=== PATIENT | female | born 1940 | race Caucasian/White ===

== ENCOUNTER → 2017-12-22 | Day surgery (SDC) | payer OTHER ==
--- NOTE | 2017-12-23 08:00 | OP ---
DATE OF OPERATION: 12/22/2017 PREOPERATIVE DIAGNOSIS: Right breast masses at 5 o'clock, 4 cm from the nipple, and 3 o'clock, retroareolar, plus right axillary node. POSTOPERATIVE DIAGNOSIS: Right breast masses at 5 o'clock, 4 cm from the nipple, and 3 o'clock, retroareolar, plus right axillary node. PROCEDURE: Right ultrasound-guided core biopsies of the right breast masses, attempted right axillary node biopsy. ANESTHESIA: Local. ATTENDING SURGEON: Rajani Daily MD ESTIMATED BLOOD LOSS: Minimal. COMPLICATIONS: None. DESCRIPTION OF PROCEDURE: Patient was made aware of the risks and benefits of the procedure and consented. She was placed in the supine position. The right breast 5 o'clock lesion, 4 cm from the nipple, was approached first. Under sterile conditions with 1% Lidocaine for local anesthesia, a small chance was made in the skin. Using a 13-guage suction biopsy device via lateral approach, under ultrasound guidance, multiple cores were obtained and submitted to Pathology. Likewise, under ultrasound guidance, a bowtie clip was placed into the biopsy region. Steri-Strips were then applied. The right 3 o'clock retroareolar nodule was then approached. Under sterile conditions with 1% Lidocaine for local anesthesia, a small chance was made in the skin. Using a 10-guage suction biopsy device via a superior lateral approach, three cores were obtained and submitted to Pathology removing the lesion. Likewise, under ultrasound guidance, a U-shaped clip was placed into the biopsy region, well tolerated by patient. Steri-Strips and sterile bandage were then applied. The right axilla was then approached. Under sterile conditions with 1% Lidocaine for local anesthesia, a small chance was made in the skin. Using a 13-guage suction biopsy device, multiple attempts were taken to biopsy the lymph node. Unfortunately, the lymph node was very high in the axilla, small, and very mobile. After multiple attempts, it became clear that we would not be able to biopsy this lymph node without jeopardizing some of the vasculature, and therefore the procedure was aborted. Steri-Strips and sterile dressings were applied. The patient tolerated the procedure well. Will contact her with results. RAJANI DAILY M.D. [id number]
--- NOTE | 2017-12-23 15:44 | PATH ---
Surgical Pathology Report Patient Name: OMARI HICKEY [facility]. Rec. #: [id number] /Age/Gender: 1940 (Age: 77) / F Account: [id number] [facility] Taken: 12/22/2017 Received: 12/22/2017 Reported: 12/23/2017 Physicians: Rajani Daily M.D. Specimen(s) Received A: RIGHT BREAST 5:00 4 CN FN CORE BIOPSY B: RIGHT BREAST 3:00 RETRO CORE BIOPSY Clinical History Palpable mass Ultrasound findings: Highly suspicious/malignant Final Diagnosis A. BREAST, RIGHT, 5:00, 4 CM FN, CORE BIOPSY: INVASIVE MICROPAPILLARY CARCINOMA (NUCLEAR GRADE 2), MEASURING 1.2 CM IN GREATEST DIMENSION IN THIS MATERIAL. FOCI OF LYMPHOVASCULAR INVASION ARE IDENTIFIED. Results of ER, CT, HER2 & Ki67 studies reported separately in an addendum. B. BREAST, RIGHT, 3:00, RETRO, CORE BIOPSY: BENIGN BREAST TISSUE SHOWING SCLEROSING ADENOSIS, FIBROADENOMATOID CHANGE, CYST FORMATION AND ASSOCIATED CALCIFICATIONS. Electronically Signed Cassandra Pierson M.D. Gross Description A. Received in formalin labeled "right breast biopsy 5:00, 4cmfn," is a 2.0 x 1.5 x 0.1 cm aggregate of multiple ross-yellow, irregular to cylindrical portions of fibroadipose tissue. The formalin is filtered and the specimen is entirely submitted in one cassette. B. Received in formalin labeled "right breast biopsy 3:00 retro," is a 1.5 x 1.3 x 0.3 cm aggregate of multiple ross-yellow, irregular to cylindrical portions of fibroadipose tissue admixed with blood clot. The formalin is filtered and the specimen is entirely submitted in one cassette. Time to formalin fixation: < 1 minute Total formalin fixation time: Approximately 10 hours. 12/22/201712/22/2017
== END | disposition home or self-care (01) ==
LOC: FRAD 10:43 → FRADUS-SUR 10:43
PROVIDERS: ATTEND Surgery Surgical Oncology
PROC: 0HBT3ZX Excision of Right Breast, Percutaneous Approach, Diagnostic (ICD-10-PCS; principal; 2017-12-22)
DX: C50.311 Malignant neoplasm of lower-inner quadrant of right female breast (principal); N63.14 Unspecified lump in the right breast, lower inner quadrant; N60.21 Fibroadenosis of right breast; N64.89 Other specified disorders of breast
CPT/HCPCS: 19083; 19084; 76641-TC-LT; 77066-TC; 87899; 88305-TC; 88342-TC; A4648; G0279-TC

== ENCOUNTER 2018-03-23 07:05 | Inpatient (IN) | payer OTHER ==
[2018-03-15 17:33] VITALS: BMI 20.9
--- NOTE | 2018-03-17 15:34 | HP ---
Admitting History and Physical - Primary Care Physician PCP: Rajani Daily - Admission Chief Complaint: Right breast cancer History of Present Illness: 77 year old postmenapausal female with family h/o breast cancer with right breast mass seen on CT scan of her chest.3.3x1.7x1.2cm. 11/2017. US showed two right breast masses 1.6 cm 5 to 6:00 and 4mm retroareolar mass and small suspicious axillary nodule. 12/22/2017 US core bx of right breast masses 5:00 4cmfn showed invasive micropappilary carcinoma and right retroarelar 3:00 showed sclerosing adenosis. Repeat CT scan of the chest showed slight decrease in size of right upper lobe mass since 11/2017 COPD and enlarged adrenal gland left and cholelithiasis. History Source: Patient Limitations to Obtaining History: No Limitations - Past Medical History LANDSCAPE TECHNICIAN: Yes: Seizure, Syncope (followed by Dr Tolliver), Other (memory loss) Pulmonary: Yes: COPD, Other (Lung nodule on CT scan with repeat CT scan showing slight decrease in right lung nodule 03/13/2018) Musculoskeletal: Yes: Chronic low back pain - Past Surgical History Past Surgical History: Yes: Tubal Ligation - Smoking History Smoking history: Current every day smoker Have you smoked in the past 12 months: Yes Aproximately how many cigarettes per day: 20 - Alcohol/Substance Use Hx Alcohol Use: No Home Medications - Allergies Allergies/Adverse Reactions: Allergies Allergy/AdvReac Type Severity Reaction Status Date / Time No Known Allergies Allergy Verified 03/15/18 17:49 - Home Medications Home Medications: Ambulatory Orders Bupropion HCl [Bupropion Xl] 150 mg PO DAILY 03/15/18 Divalproex Sodium [Depakote ER] 500 mg PO BID 03/15/18 Gabapentin 100 mg PO HS 03/15/18 Family Disease History - Family Disease History Family Disease History: CA: Father (bacl cancer), Mother (bilat breast ca 50/60) Physical Examination Constitutional: Yes: Well Nourished Breast(s): Yes: Other (breast symmetrical diffusely nodular 2.0 cm firm mass in the lower outer quad mass with skin retraction but no involvement) Problem List - Problems (1) Breast cancer, right breast Code(s): C50.911 - MALIGNANT NEOPLASM OF UNSP SITE OF RIGHT FEMALE BREAST Qualifiers: Breast location: lower outer quadrant of breast Patient sex: female Assessment/Plan Right total mastectomy sentenel node biopsy with blue dye only, no reconstruction, possible axillary node dissection
[2018-03-23] MEDS ORDERED: BUPIVACAINE HCL/PF (5 MG/ML) 30 ML VIAL IJ ONE (07:37)
[2018-03-23] MEDS ORDERED: MIDAZOLAM HCL 2 MG/2 ML SINGLE DOSE VIAL ONE (07:37)
[2018-03-23] MEDS ORDERED: DEXAMETHASONE SOD PHOSPHATE/PF 10 MG/ML SDV ONE (07:37)
[2018-03-23] MEDS ORDERED: SUCCINYLCHOLINE CHLORIDE 200 MG/10 ML VIAL ONE (08:33)
[2018-03-23] MEDS ORDERED: ROCURONIUM BROMIDE 50 MG/5 ML VIAL ONE (08:33)
[2018-03-23] MEDS ORDERED: PROPOFOL 20 ML ONE ×2 (08:33)
[2018-03-23] MEDS ORDERED: LIDOCAINE HCL 2% JELLY (5 ML/TUBE) ONE (08:34)
[2018-03-23] MEDS ORDERED: LIDOCAINE HCL/PF 2% SDV 5ML VIAL ONE (08:34)
[2018-03-23] MEDS ORDERED: DEXAMETHASONE SOD PHOSPHATE 4 MG/1 ML VIAL ONE (08:34)
[2018-03-23] MEDS ORDERED: KETOROLAC TROMETHAMINE 30 MG/1 ML VIAL ONE (08:34)
[2018-03-23] MEDS ORDERED: ceFAZolin SODIUM 1 GM VIAL ONE (08:34)
[2018-03-23] MEDS ORDERED: ONDANSETRON 4 MG/2 ML VIAL ONE (08:34)
[2018-03-23] MEDS ORDERED: ISOSULFAN BLUE 10 MG/ML VIAL SQ ONE (09:08)
[2018-03-23] MEDS ORDERED: GUM MASTIC/STORAX/MSAL/ALCOHOL 1 DRP DROPSBTL MC ONE (10:54)
[2018-03-23] MEDS ORDERED: ONDANSETRON 4 MG/2 ML VIAL IVPUSH PRN ×2 (11:08→11:14)
[2018-03-23] MEDS ORDERED: ZOLPIDEM TARTRATE 5 MG TABLET PO PRN (11:08)
[2018-03-23] MEDS ORDERED: ACETAMINOPHEN 325 MG TABLET (FP) PO PRN (11:08)
[2018-03-23] MEDS ORDERED: PROMETHAZINE HCL 25 MG/1 ML VIAL IVPUSH PRN (11:14)
[2018-03-23] MEDS ORDERED: oxyCODONE HCL 5 MG TABLET PO PRN ×2 (11:14)
[2018-03-23] MEDS ORDERED: DEXTROSE 5%-0.45% SALINE 1,000 ML IV SCH (11:15)
[2018-03-23] MEDS ORDERED: LACTATED RINGERS SOLUTION 1,000 ML IV SCH (11:15)
[2018-03-23] MEDS ORDERED: ONDANSETRON 4 MG/2 ML VIAL IVPUSH ONE (11:33)
--- NOTE | 2018-03-23 12:24 | OP ---
DATE OF OPERATION: 03/23/2018 PREOPERATIVE DIAGNOSIS: Right breast cancer. POSTOPERATIVE DIAGNOSIS: Right breast cancer. PROCEDURE: Right modified radical mastectomy with right axillary sentinel node biopsy. ANESTHESIA: General intubated. ATTENDING SURGEON: Rajani Guo MD NUCLEAR INSTRUCTOR: KENDALL Díaz ESTIMATED BLOOD LOSS: Minimal. COMPLICATIONS: None. DESCRIPTION OF PROCEDURE: The patient was made aware of the risks and benefits of the procedure and consented. She was placed in the supine position on the operating room table, and after was induced, the patient was intubated. Then 2.5 mL of 1% Isosulfan Blue was locally infiltrated into the peritumoral tissues. The operative site is prepped and draped in the usual sterile fashion. Waiting approximately 10 minutes with gently manual compression, a curvilinear incision was made in the right axilla. Using blunt and sharp dissection, tissues were dissected down where blue cluster of lymph were surgically excised and submitted for frozen section. Frozen section was reported as positive for metastatic cancer. Elliptical incision was then made around the nipple and skin overlying the tumor. Using electrocautery, skin flaps were made superior to the clavicle, medial to the sternum, laterally to the latissimus dorsi, and inferior to inframammary fold. Using electrocautery, the breast tissue was taken out the pectoralis muscle extending to latissimus dorsi. The clavipectoral muscle was incised revealing the axillary vein dissecting bluntly along the lateral chest wall, the long thoracic nerve was identified and retracted medially. Laterally, the thoracodorsal nerve was identified and retracted laterally. Tissues between the two were bluntly and sharply dissected away using medium-sized hemoclips for hemostasis. Specimen was then submitted as right breast with right axillary contents with a short suture superior and long suture lateral. The wound was copiously irrigated with normal saline. Hemostasis maintained by electrocautery. Through 2 inferior stab wounds, No. 10 Maul[place] drains were placed and sutured to the skin with 2-0 silk. The skin was then closed with interrupted 2-0 Vicryl followed by running subdermal 3-0 Vicryl followed by a running subcuticular 4-0 Monocryl. Dermabond, pressure dressing, and a bra were then applied, and the patient having tolerated the procedure well, was transferred to the recovery room in excellent condition. PONVasquez [id number]
[2018-03-23] MEDS: CEFAZOLIN 1 GM/D5W 1 GM/50 ML BAG IVPB SCH ×2 (15:49→20:44)
[2018-03-23] MEDS ORDERED: PT OWN MED DRAWER 7, Y5N ONE (21:00)
[2018-03-23] MEDS: DIVALPROEX NA *ER* EXTEND REL 500 MG TABLET.SA (FP) PO SCH (21:35)
[2018-03-24] MEDS: CEFAZOLIN 1 GM/D5W 1 GM/50 ML BAG IVPB SCH ×4 (03:41→21:22)
--- NOTE | 2018-03-24 09:15 | PN ---
Progress Note, Physician Chief Complaint: S/P right MRM with sentinel node bx POD #1 History of Present Illness: Patient was seen today at the bedside and reports right sided lower chest pain as well as abdominal discomfort. She is tolerating po intake well. - Current Medication List Current Medications: Active Medications Acetaminophen (Tylenol -) 650 mg PO Q4H PRN PRN Reason: FEVER Acetaminophen (Tylenol -) 650 mg PO Q6H [facility] Stop: 03/26/18 11:14 Bupropion HCl (Wellbutrin Xl -) 150 mg PO DAILY [facility] Divalproex Sodium (Depakote *Er* -) 500 mg PO BID [facility] Last Admin: 03/23/18 21:35 Dose: 500 mg Fentanyl (Sublimaze Injection -) 25 mcg IVPUSH [id number] PRN PRN Reason: PAIN-PACU ORDER X 4 DOSES ONLY Cefazolin Sodium (Ancef 1 Gm Premixed Ivpb -) 1 gm in 50 mls @ 100 mls/hr IVPB Q6H-IV [facility] Stop: 03/30/18 14:59 Last Admin: 03/24/18 03:41 Dose: 100 mls/hr Dextrose/Sodium Chloride (D5-1/2ns -) 1,000 mls @ 100 mls/hr IV ASDIR [facility] Lactated Ringer's (Lactated Ringers Solution) 1,000 mls @ 75 mls/hr IV ASDIR NICK Ondansetron HCl (Zofran Injection) 4 mg IVPUSH Q6H PRN PRN Reason: NAUSEA AND/OR VOMITING Last Admin: 03/24/18 03:41 Dose: 4 mg Ondansetron HCl (Zofran Injection) 4 mg IVPUSH Q6H PRN PRN Reason: NAUSEA AND/OR VOMITING Oxycodone HCl (Roxicodone -) 5 mg PO Q3H PRN PRN Reason: PAIN LEVEL 1-5 Last Admin: 03/24/18 03:44 Dose: 5 mg Oxycodone HCl (Roxicodone -) 10 mg PO Q3H PRN PRN Reason: PAIN LEVEL 6-10 Promethazine HCl (Phenergan Injection -) 12.5 mg IVPUSH Q6H PRN PRN Reason: NAUSEA-FOR RESCUE AFTER 15 MIN Zolpidem Tartrate (Ambien -) 5 mg PO HS PRN PRN Reason: Insomnia - Objective Vital Signs: Vital Signs Temperature 98.3 F 03/24/18 06:59 Pulse Rate 58 L 03/24/18 06:59 Respiratory Rate 18 03/24/18 06:59 Blood Pressure 110/49 03/24/18 06:59 O2 Sat by Pulse Oximetry (%) 93 L 03/24/18 06:00 Constitutional: Yes: Well Nourished, No Distress, Calm Breast(s): Yes: Right (Right chest flap with mild ecchymosis and swelling noted laterally. The incision is clean with steristrips intact. No pain on palpation. ANDRES x 2 with bloody discharge noted.) Labs: CBC, BMP 03/23/18 11:30 Problem List - Problems (1) Breast cancer, right breast Code(s): C50.911 - MALIGNANT NEOPLASM OF UNSP SITE OF RIGHT FEMALE BREAST Qualifiers: Breast location: lower outer quadrant of breast Patient sex: female Assessment/Plan S/P Right MRM with sentinel node bx POD #1 Plan: Followup todays vitals and CBC Colace for constipation SCDS as ordered pain meds and IV axbx as ordered teach ANDRES monitoring
[2018-03-24] MEDS ORDERED: PT OWN MED DRAWER 7, Y5N ONE ×2 (09:19→21:17)
[2018-03-24 09:24] LABS: HEMATOCRIT 28.9 % (32.4-45.2); HEMOGLOBIN 9.8 GM/dl (10.7-15.3); MCH 32.5 pg (25.7-33.7); MCHC 33.8 g/dl (32.0-36.0); MEAN CELL VOLUME 96.2 fl (80-96); MEAN PLT VOLUME 8.3 fl (7.5-11.1); PLATELET COUNT 197 K/MM3 (134-434); WHITE BLOOD COUNT 15.9 K/mm3 (4.0-10.8)
[2018-03-24] MEDS: DIVALPROEX NA *ER* EXTEND REL 500 MG TABLET.SA (FP) PO SCH ×2 (10:02→21:22)
[2018-03-24] MEDS: ACETAMINOPHEN 325 MG TABLET (FP) PO SCH ×2 (12:00→17:17)
[2018-03-24] MEDS: HEPARIN NA (PORCINE) 5,000 UNITS/ML 1ML VIAL SQ SCH ×2 (13:22→21:22)
[2018-03-24] MEDS: DOCUSATE SODIUM 100 MG CAPSULE (FP) PO SCH ×2 (13:22→21:22)
[2018-03-25] MEDS: ACETAMINOPHEN 325 MG TABLET (FP) PO SCH ×2 (00:59→05:39)
[2018-03-25] MEDS: CEFAZOLIN 1 GM/D5W 1 GM/50 ML BAG IVPB SCH ×2 (02:24→10:01)
[2018-03-25] MEDS: DOCUSATE SODIUM 100 MG CAPSULE (FP) PO SCH (05:39)
[2018-03-25 05:40] VITALS: TEMP 98.8
--- NOTE | 2018-03-25 09:23 | PN ---
Progress Note, Physician Chief Complaint: S/P right MRM with sentinel node bx POD #2 History of Present Illness: Patient was seen today at the bedside and reports right sided lower chest discomfort that has improved on pain meds. She denies SOB. She is tolerating po intake well. - Current Medication List Current Medications: Active Medications Acetaminophen (Tylenol -) 650 mg PO Q4H PRN PRN Reason: FEVER Acetaminophen (Tylenol -) 650 mg PO Q6H [facility] Stop: 03/26/18 11:14 Last Admin: 03/25/18 05:39 Dose: 650 mg Bupropion HCl (Wellbutrin Xl -) 150 mg PO DAILY [facility] Last Admin: 03/24/18 10:02 Dose: 150 mg Divalproex Sodium (Depakote *Er* -) 500 mg PO BID [facility] Last Admin: 03/24/18 21:22 Dose: 500 mg Docusate Sodium (Colace -) 100 mg PO TID [facility] Last Admin: 03/25/18 05:39 Dose: 100 mg Fentanyl (Sublimaze Injection -) 25 mcg IVPUSH [id number] PRN PRN Reason: PAIN-PACU ORDER X 4 DOSES ONLY Heparin Sodium (Porcine) (Heparin -) 5,000 unit SQ BID [facility] Last Admin: 03/24/18 21:22 Dose: 5,000 unit Cefazolin Sodium (Ancef 1 Gm Premixed Ivpb -) 1 gm in 50 mls @ 100 mls/hr IVPB Q6H-IV [facility] Stop: 03/30/18 14:59 Last Admin: 03/25/18 02:24 Dose: 100 mls/hr Dextrose/Sodium Chloride (D5-1/2ns -) 1,000 mls @ 100 mls/hr IV ASDIR [facility] Last Admin: 03/24/18 13:20 Dose: Not Given Lactated Ringer's (Lactated Ringers Solution) 1,000 mls @ 75 mls/hr IV ASDIR [facility] Last Admin: 03/24/18 13:20 Dose: Not Given Ondansetron HCl (Zofran Injection) 4 mg IVPUSH Q6H PRN PRN Reason: NAUSEA AND/OR VOMITING Last Admin: 03/24/18 03:41 Dose: 4 mg Ondansetron HCl (Zofran Injection) 4 mg IVPUSH Q6H PRN PRN Reason: NAUSEA AND/OR VOMITING Oxycodone HCl (Roxicodone -) 5 mg PO Q3H PRN PRN Reason: PAIN LEVEL 1-5 Last Admin: 03/24/18 03:44 Dose: 5 mg Oxycodone HCl (Roxicodone -) 10 mg PO Q3H PRN PRN Reason: PAIN LEVEL 6-10 Promethazine HCl (Phenergan Injection -) 12.5 mg IVPUSH Q6H PRN PRN Reason: NAUSEA-FOR RESCUE AFTER 15 MIN Zolpidem Tartrate (Ambien -) 5 mg PO HS PRN PRN Reason: Insomnia - Objective Vital Signs: Vital Signs Temperature 98.8 F 03/25/18 05:39 Pulse Rate 89 03/25/18 05:39 Respiratory Rate 18 03/25/18 08:53 Blood Pressure 129/56 03/25/18 05:39 O2 Sat by Pulse Oximetry (%) 99 03/25/18 08:53 Constitutional: Yes: Calm Breast(s): Yes: Other (Right chest flap ecchymosis noted with mild swelling. The JPs with discharge noted that is somewhat bloodier than serosanginous.) Labs: CBC, BMP 03/24/18 08:10 03/23/18 11:30 Problem List - Problems (1) Breast cancer, right breast Code(s): C50.911 - MALIGNANT NEOPLASM OF UNSP SITE OF RIGHT FEMALE BREAST Qualifiers: Breast location: lower outer quadrant of breast Patient sex: female Assessment/Plan Plan: Patient was seen at the bedside with Dr. Huerta and is cleared to go home. VNS to see patient at home. Pain meds and axbx at home RTO next Thursday or Thursday.
[2018-03-25] MEDS ORDERED: PT OWN MED DRAWER 7, Y5N ONE (09:50)
[2018-03-25] MEDS: DIVALPROEX NA *ER* EXTEND REL 500 MG TABLET.SA (FP) PO SCH (10:01)
[2018-03-25] MEDS: HEPARIN NA (PORCINE) 5,000 UNITS/ML 1ML VIAL SQ SCH (10:01)
[2018-03-25 10:10] VITALS: BP 111/47; PULSE 95
--- NOTE | 2018-03-26 16:31 | PATH ---
Surgical Pathology Report Patient Name: OMARI HICKEY Med. Rec. #: [id number] /Age/Gender: 1940 (Age: 77) / F Account: [id number] Location: [facility] Taken: 03/23/2018 Received: 03/23/2018 Reported: 03/26/2018 Physicians: Rajani Daily M.D. Specimen(s) Received A: RIGHT AXILLARY SENTINAL NODES B: RIGHT BREAST AND AXILLARY CONTENTS Clinical History Breast cancer Intraoperative Consult Diagnosis Right axillary sentinel node, frozen section: Positive for metastatic carcinoma. Zain Pierson M.D., 03/24/18 Final Diagnosis A. AXILLARY, SENTINEL LYMPH NODE, RIGHT, EXCISION: ONE LYMPH NODE WITH METASTATIC CARCINOMA (11/02, MACROMETASTASIS >2MM). CARCINOMA MEASURES 6 MM IN GREATEST MICROSCOPIC DIMENSION. NO EXTRANODAL EXTENSION IDENTIFIED. B. BREAST AND AXILLARY CONTENTS, RIGHT, MODIFIED RADICAL MASTECTOMY: INVASIVE MICROPAPILLARY CARCINOMA, MODERATELY DIFFERENTIATED (TUBULE SCORE: 3/3, NUCLEAR GRADE: 2/3, MITOTIC SCORE: 1/3; TOTAL PEEWEE SCORE: 6/9). INVASIVE CARCINOMA MEASURES 1.7 CM IN GREATEST MICROSCOPIC DIMENSION. 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 LYMPHOVASCULAR AND PERINEURAL INVASION IDENTIFIED. SURGICAL MARGINS ARE UNINVOLVED BY CARCINOMA; CARCINOMA IS AT 5 MM FROM THE CLOSEST ANTERIOR MARGIN. SKIN AND NIPPLE IS PRESENT AND IS UNINVOLVED BY CARCINOMA. REMAINDER OF THE BREAST TISSUE SHOWS ATYPICAL DUCTAL HYPERPLASIA, MICROCYSTS, SCLEROSING ADENOSIS, APOCRINE METAPLASIA, COLUMNAR CELL CHANGE, AND ASSOCIATED MICROCALCIFICATIONS. PRIOR BIOPSY SITE CHANGES ARE PRESENT. PATHOLOGIC STAGE (pTNM): pT1c pN1a. SEE ALSO INVASIVE CARCINOMA CASE SUMMARY BELOW. Comments Breast Invasive Carcinoma: Surgical Pathology Case Summary (Based on AJCC TNM 8 th edition) Procedure _X_ Modified radical mastectomy Specimen Laterality _X_ Right Tumor Size _X_ Greatest dimension of largest invasive focus >1 mm (specify exact measurement) (millimeters): _17_ mm Histologic Type _X_ Invasive micropapillary carcinoma Histologic Grade (Sherborn Histologic Score) Glandular (Acinar)/Tubular Differentiation _X_ Score 3 (<10% of tumor area forming glandular/tubular structures) Nuclear Pleomorphism _X_ Score 2 Mitotic Rate _X_ Score 1 Overall Grade _X_ Grade 2 (scores of 6) Tumor Focality _X__ Single focus of invasive carcinoma (LIQ) Ductal Carcinoma In Situ (DCIS) _X_ DCIS is present in specimen _X_ Negative for extensive intraductal component (EIC) Margins Invasive Carcinoma Margins _X__ Uninvolved by invasive carcinoma Distance from closest margin (millimeters): 5 mm Closest margin: Anterior DCIS Margins _X__ Uninvolved by DCIS (widely free) Regional Lymph Nodes Number of Lymph Nodes with Macrometastases (>2 mm): 2 Number of Lymph Nodes with Micrometastases (>0.2 mm to 2 mm and/or >200 cells): 0 Number of Lymph Nodes with Isolated Tumor Cells (=0.2 mm and =200 cells): 0 Size of Largest Metastatic Deposit (millimeters): 7 mm Extranodal Extension: _X_ Not identified Number of Lymph Nodes Examined: 11 Number of [place] Nodes Examined : 1 Treatment Effect _X_ No known presurgical therapy Lymphovascular Invasion _X_ Present Pathologic Stage Classification (pTNM, AJCC 8th Edition) Primary Tumor (Invasive Carcinoma) (pT) _X_ pT1c: Tumor >10 mm but =20 mm in greatest dimension Regional Lymph Nodes (pN) Category (pN) _X__ pN1a: Metastases in 1 to 3 axillary lymph nodes, at least 1 metastasis larger than 2.0 mm Biomarker Studies Results of ER and ID studies performed on prior biopsy ([id number]) at [facility] are as follows: ER (clone [id number] mouse monoclonal antibody by [employer]): 100% nuclear staining with strong intensity (Positive). ID (clone16 mouse monoclonal antibody by [employer]): 100% nuclear staining with strong intensity (Positive). Results of Her2 (IHC) & Ki-67 studies performed on prior biopsy ([id number]) at [place], [place] ([id number]) are as follows: Her2 IHC (EP3 from [employer], formerly known as [id number], using [employer] Polymer Refine detection kit): 0 (Negative) Ki67: 15-20% (intermediate proliferative index) Electronically Signed Tanna Garibay M.D. Addendum Reported: 03/31/2018 Addendum Diagnosis Part B, One of ten lymph nodes with metastatic carcinoma (1/10, Macrometastasis, >2mm). Carcinoma measures 7 mm in greatest microscopic dimension. No extranodal extension identified. Findings discussed with Dr. Daily. Tanna Garibay M.D. Gross Description A. Received fresh for frozen section labeled "right axillary sentinel nodes," is a 1.4 x 1.0 x 0.4 cm lymph node with attached fatty tissue. The lymph node is bisected and a frozen section is performed on one half of the lymph node. The lymph node is entirely submitted in 2 cassettes as follows: 1-frozen section residue; 2-remaining half of lymph node. B. Received in formalin, labeled "right breast and axillary contents," is a 371 gram, 16.0 x 15.0 x 3.5 cm. right mastectomy specimen with a short suture marking the superior aspect and a long suture marking the lateral aspect of the specimen, per the surgeon. There is a 6.0 x 6.0 x 1.5 cm aggregate of axillary fat at the lateral aspect of the specimen. The anterior surface displays a 14.0 x 5.5 cm ross, elliptical portion of skin with a 0.9 cm in diameter nipple. The deep margin is inked black and the anterior soft tissue margin is inked blue. The specimen is serially sectioned from lateral to medial. Sectioning reveals a 1.7 x 1.0 x 1.0 cm ross, indurated mass in the lower inner quadrant (LIQ). The mass is focally 0.5 cm from the anterior soft tissue margin and 1.0 cm from the skin. The mass is 2.5 cm from the deep margin. The remaining breast parenchyma displays multifocal dense, firm fibrous tissue. Sectioning of the axillary fat reveals multiple possible lymph nodes ranging from 0.2-1.0 cm in greatest dimension. Tint Layer sections are submitted in 32 cassettes as follows: 1-serially sectioned nipple; 2-subareolar shave; 3-4-one full face section of mass each (each with skin and anterior soft tissue margin); 0-4-tzielvytsp sections of mass with skin and anterior soft tissue margin; 7-LIQ firm fibrous tissue surrounding mass; 5-4-ezwohccrsn LIQ; 10-11-upper inner quadrant; 12-13-upper outer quadrant; 14-15-lower outer quadrant; 91-81-lifeivwfqsxc tissue; 19- additional skin and anterior soft tissue margin; 20-deep margin; 21-one whole bisected lymph node; 22-25-one whole possible lymph node each; 26-two whole possible lymph nodes; 27-three whole possible lymph nodes; 84-99-yteiwehnna axillary fat. Time to formalin fixation: 11 minutes Total formalin fixation time: Approximately 32 hours. 03/23/2018 [facility]03/23/2018
== END 2018-03-25 10:45 | disposition home or self-care (01) | DRG 580 ==
LOC: FM/S 07:05
PROVIDERS: ADMIT Surgery Surgical Oncology; ATTEND Surgery Surgical Oncology
PROC: 0HTT0ZZ Resection of Right Breast, Open Approach (ICD-10-PCS; principal; 2018-03-23 09:22)
PROC: 07B50ZX Excision of Right Axillary Lymphatic, Open Approach, Diagnostic (ICD-10-PCS; 2018-03-23 09:22)
DX: C50.511 Malignant neoplasm of lower-outer quadrant of right female breast (principal); C77.3 Secondary and unspecified malignant neoplasm of axilla and upper limb lymph nodes; F17.210 Nicotine dependence, cigarettes, uncomplicated
CPT/HCPCS: 36415; 84132; 85027; 94760; J1644

== ENCOUNTER 2018-04-13 12:25 | Day surgery (SDC) | payer OTHER ==
[2018-04-09 13:40] VITALS: BMI 21.4
--- NOTE | 2018-04-12 09:35 | HP ---
Admitting History and Physical - Primary Care Physician PCP: Rajani Daily - Admission Chief Complaint: Right breast cancer and post op hematoma and flap necrosis History of Present Illness: 77 year old female S/P modified radical mastectomy W/O reconstruction 2017 for a 1.7 cm micropapillary cancer 2+/11 nodes. She devoloped post op hematoma and flap necrosis . She also smokes one PPD for 60 years. She was on antibiotics and using silvadene cream . 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: Yes: Seizure, Syncope (followed by Dr Tolliver), Other (memory loss) Pulmonary: Yes: COPD, Other (Lung nodule on CT scan with repeat CT scan showing slight decrease in right lung nodule 03/13/2018) Musculoskeletal: Yes: Chronic low back pain - Past Surgical History Past Surgical History: Yes: Mastectomy (right modififed radical mastectomy with post op hematoma and flap necrosis 03/23/2018 1.7 cm micropapilary cancer 2+/ 11 nodes), Tubal Ligation - Smoking History Smoking history: Current every day smoker Have you smoked in the past 12 months: Yes Aproximately how many cigarettes per day: 20 - Alcohol/Substance Use Hx Alcohol Use: No Home Medications - Allergies Allergies/Adverse Reactions: Allergies Allergy/AdvReac Type Severity Reaction Status Date / Time No Known Allergies Allergy Verified 04/09/18 13:31 - Home Medications Home Medications: Ambulatory Orders Bupropion HCl [Bupropion Xl] 150 mg PO DAILY 03/15/18 Divalproex Sodium [Depakote ER] 500 mg PO BID 03/15/18 Gabapentin 100 mg PO HS 03/15/18 Acetaminophen [Pain Relief] 500 mg PO ASDIR PRN 03/23/18 Cefadroxil 500 mg PO BID #20 capsule 03/25/18 Family Disease History - Family Disease History Family Disease History: CA: Father (bacl cancer), Mother (bilat breast ca 50/60) Physical Examination Constitutional: Yes: Well Nourished Breast(s): Yes: Other (prominenet sub flap hematoma with exstensive ecchymosis and 6x 2 cm area of flap eschar.) Problem List - Problems (1) Breast cancer, right breast Code(s): C50.911 - MALIGNANT NEOPLASM OF UNSP SITE OF RIGHT FEMALE BREAST Qualifiers: Breast location: lower outer quadrant of breast Patient sex: female Assessment/Plan debridement of right chest wall eschar and evacuation of hematoma and reclose incision with new drain.
[2018-04-13] MEDS ORDERED: oxyCODONE HCL 5 MG TABLET PO PRN (14:43)
[2018-04-13] MEDS ORDERED: ONDANSETRON 4 MG/2 ML VIAL IVPUSH PRN ×2 (14:43→16:23)
[2018-04-13] MEDS ORDERED: LACTATED RINGERS SOLUTION 1,000 ML IV SCH (14:45)
[2018-04-13] MEDS ORDERED: LIDOCAINE HCL/PF 2% SDV 5ML VIAL ONE (15:02)
[2018-04-13] MEDS ORDERED: PROPOFOL 20 ML ONE ×2 (15:02→15:05)
[2018-04-13] MEDS ORDERED: ceFAZolin SODIUM 1 GM VIAL ONE (15:03)
[2018-04-13] MEDS ORDERED: DEXAMETHASONE SOD PHOSPHATE 4 MG/1 ML VIAL ONE (15:03)
[2018-04-13] MEDS ORDERED: SUCCINYLCHOLINE CHLORIDE 200 MG/10 ML VIAL ONE (15:09)
[2018-04-13] MEDS ORDERED: DEXTROSE 5%-0.45% SALINE 1,000 ML IV SCH (16:30)
[2018-04-13] MEDS ORDERED: ONDANSETRON 4 MG/2 ML VIAL ONE (16:30)
[2018-04-13] MEDS ORDERED: ONDANSETRON 4 MG/2 ML VIAL IVPUSH ONE (16:33)
--- NOTE | 2018-04-13 16:41 | OP ---
DATE OF OPERATION: 04/13/2018 PREOPERATIVE DIAGNOSIS: Right postoperative wound hematoma with skin necrosis. POSTOPERATIVE DIAGNOSIS: Right postoperative wound hematoma with skin necrosis. PROCEDURE: Right chest wall debridement and evacuation of hematoma. ANESTHESIA: General intubated. ATTENDING SURGEON: Loraine Daily M.D. PAINTER DECORATOR: Law James ESTIMATED BLOOD LOSS: Minimal. COMPLICATIONS: None. DESCRIPTION OF PROCEDURE: Patient was made aware of the risks and benefits of the procedure and consented. After general anesthesia was induced, the patient was intubated. The operative site was prepped and draped in the usual sterile fashion. Incision was made around elliptically the prior necrotic portions of the incision. This is submitted as chest wall debridement tissue. Underneath the hematoma was evacuated and cleaned out of the chest wall using a pulse dual rate dealer. The wound was copiously cleaned. The skin was then released from some of the chest wall and upper abdomen to gain some laxity for closure. Bleeders were copiously cauterized. Through an inferior stab wound a number 1010 Maulik-Salinas drain was placed into the wound, sutured to the skin with 3-0 nylon. The skin was then closed with interrupted 2-0 Vicryl followed by running 3-0 Vicryl followed by running subcuticular 4-0 Monocryl. Steri-Strips, sterile dressings, as well as an Wyatt wrap were then applied. Patient having tolerated the procedure well was transferred to the recovery room in excellent condition. LORAINE DAILY M.D. [id number]
[2018-04-13] MEDS ORDERED: oxyCODONE HCL 5 MG TABLET ONE (17:37)
[2018-04-13 18:58] VITALS: BP 122/60; PULSE 77; TEMP 97.9
--- NOTE | 2018-04-15 16:27 | PATH ---
Surgical Pathology Report Patient Name: OMARI HICKEY [facility]. Rec. #: [id number] /Age/Gender: 1940 (Age: 77) / F Account: [id number] Location: [facility] AMBULATORY Taken: 04/13/2018 Received: 04/14/2018 Reported: 04/15/2018 Physicians: Rajani Daily M.D. Specimen(s) Received RIGHT CHEST WALL DEBRIDEMENT Clinical History Breast cancer Final Diagnosis RIGHT CHEST WALL DEBRIDEMENT: SEGMENTS OF SKIN WITH GANGRENOUS NECROSIS, SEVERE ACUTE AND CHRONIC INFLAMMATION WITH HEMORRHAGE AND ABSCESS. Electronically Signed Jadon Salas M.D. Gross Description Received in formalin labeled with "right chest wall debridement", it is a piece of skin tissue measuring 17 x 4.5 x 1.5cm. The skin surface is smooth with focal dark brown discoloration, the resections side of the tissue shows irregular surface with blood clot attached. Appeals Manager sections are submitted in 2 cassettes. PERLITA/04/14/2018 loco/04/14/2018
== END 2018-04-13 18:59 | disposition home or self-care (01) ==
LOC: FASU 12:25
PROVIDERS: ATTEND Surgery Surgical Oncology
PROC: 0HC5XZZ Extirpation of Matter from Chest Skin, External Approach (ICD-10-PCS; 2018-04-13)
PROC: 0HB5XZZ Excision of Chest Skin, External Approach (ICD-10-PCS; principal; 2018-04-13 15:16)
DX: L76.32 Postprocedural hematoma of skin and subcutaneous tissue following other procedure (principal); Y83.8 Other surgical procedures as the cause of abnormal reaction of the patient, or of later complication, without mention of misadventure at the time of the procedure; I96 Gangrene, not elsewhere classified
CPT/HCPCS: 88304-TC; 94760

== ENCOUNTER 2018-10-27 22:38 | Emergency (ER) | payer OTHER ==
[2018-10-27 22:45] VITALS: BP 157/112; PULSE 95; TEMP 98.4; BMI 22.1
--- NOTE | 2018-10-27 23:01 | PDOC ---
History of Present Illness - General History Source: Patient, Family Exam Limitations: No Limitations - History of Present Illness Initial Comments: 10/27/18 23:12 The patient is a 78 year old female presenting with family, who presents to the ED complaining of back pain that began today. She notes that her back pain is localized on the left lower back, with pain ranging from mild to moderate. She reports that the pain radiates down her left leg to her knee. She notes that certain positions exacerbates her pain. She denies any kind of fall or injury. PAST MEDICAL HISTORY: (+) Right sided breast CA PAST SURGICAL HISTORY: (+) Right sided mastectomy FAMILY HISTORY: no pertinent history SOCIAL HISTORY: Pt lives with family MEDICATIONS: reviewed ALLERGIES: As per nursing notes General: No fevers or chills, no weakness, no weight loss HEENT: No change in vision. No sore throat,. No ear pain CardioVascular: No chest pain or shortness of breath Respiratory:No cough, or wheezing. Gastrointestinal: no nausea, vomiting, diarrhea or constipation, No rectal bleeding Genitourinary: No dysuria, hematuria, or frequency Musculoskeletal: (+) Back pain. Neurologic: No headache, vertigo, dizziness or loss of consciousness Psychiatric: nor depression Skin: No rashes or easy bruising Endocrine: no increased thirst or abnormal weight change Allergic: no skin or latex allergy All other systems reviewed and normal General: Well-nourished well-developed individual, no acute distress Abdomen: Soft, nondistended, normal bowel sounds, nontender to palpation diffusely Extremities: Warm, dry, no cyanosis, clubbing, or edema Musculoskeletal: (+) No lumbar or sacral tenderness. Tender over left sciotic nodge, no hip tendenress, neurovascularly intact Skin: No rashes Neuro: Alert and oriented x3, nonfocal exam, grossly intact, normal gait Psych: Normal mood and affect <Zaire Whalen - Last Filed: 10/27/18 23:12> - General History Source: Patient Exam Limitations: No Limitations - History of Present Illness Initial Comments: A portion of this note was documented by scribe services under my direction. I have reviewed the details of the note, within reason, and agree with the documentation with the following case summary and management plan written by me. Patient treated in the ED. Nursing notes are reviewed and incorporated into the medical decision-making. Vital signs reviewed. Assessment and plan: This is a 78-year-old female who comes in complaining of low back pain radiating to her leg. Patient does have history of sciatica that intermittently flares up but says she's had this is the worst that she has had. Patient given some anti-inflammatories and Flexeril. Patient discharged home with her son will follow-up with her primary care doctor <Thelma Chadwick I - Last Filed: 10/28/18 23:35> - General Chief Complaint: Back Pain Stated Complaint: BACK PAIN Time Seen by Provider: 10/27/18 22:43 Past History <Zaire Whalen - Last Filed: 10/27/18 23:12> - Past Medical History Anemia: No Asthma: No Cancer: No Cardiac Disorders: No CVA: No COPD: Yes CHF: No Dementia: Yes Diabetes: No GI Disorders: No Disorders: No HTN: No Hypercholesterolemia: Yes Liver Disease: No Seizures: No Thyroid Disease: No - Surgical History Abdominal Surgery: No Appendectomy: No Cardiac Surgery: No Cholecystectomy: No Lung Surgery: No Neurologic Surgery: No Orthopedic Surgery: No - Suicide/Smoking/Psychosocial Hx Smoking History: Current every day smoker Have you smoked in the past 12 months: Yes Number of Cigarettes Smoked Daily: 20 Information on smoking cessation initiated: Yes 'Breaking Loose' booklet given: 04/13/18 Hx Alcohol Use: No Drug/Substance Use Hx: No Substance Use Type: None <Thelma Chadwick I - Last Filed: 10/28/18 23:35> - Past Medical History Allergies/Adverse Reactions: Allergies Allergy/AdvReac Type Severity Reaction Status Date / Time No Known Allergies Allergy Verified 04/13/18 12:44 Home Medications: Ambulatory Orders Bupropion HCl [Bupropion Xl] 150 mg PO DAILY 03/15/18 Divalproex Sodium [Depakote ER] 500 mg PO BID 03/15/18 Gabapentin 100 mg PO HS 03/15/18 Acetaminophen [Pain Relief] 500 mg PO ASDIR PRN 03/23/18 Cefadroxil 500 mg PO BID #20 capsule 03/25/18 Acetaminophen [Tylenol] 650 mg PO TID PRN #30 tablet 04/13/18 Cefadroxil 500 mg PO BID #20 capsule 04/13/18 Hydrocodone/Acetaminophen [Vicodin 5-300 mg Tablet] 1 each PO TID PRN 7 Days #7 tablet MDD 4 04/13/18 Methocarbamol [Robaxin -] 500 mg PO BID #14 tablet 10/27/18 *Physical Exam - Vital Signs Last Vital Signs Temp Pulse Resp BP Pulse Ox 98.4 F 95 H 14 157/112 H 99 10/27/18 22:40 10/27/18 22:40 10/27/18 22:40 10/27/18 22:40 10/27/18 22:40 <Zaire Whalen - Last Filed: 10/27/18 23:12> - Vital Signs Last Vital Signs Temp Pulse Resp BP Pulse Ox 98.4 F 95 H 14 157/112 H 99 10/27/18 22:40 10/27/18 22:40 10/27/18 22:40 10/27/18 22:40 10/27/18 22:40 <Thelma Chadwick I - Last Filed: 10/28/18 23:35> Moderate Sedation - Procedure Monitoring Vital Signs: Procedure Monitoring Vital Signs Temperature 98.4 F 10/27/18 22:40 Pulse Rate 95 H 10/27/18 22:40 Respiratory Rate 14 10/27/18 22:40 Blood Pressure 157/112 H 10/27/18 22:40 O2 Sat by Pulse Oximetry (%) 99 10/27/18 22:40 <Zaire Whalen - Last Filed: 10/27/18 23:12> - Procedure Monitoring Vital Signs: Procedure Monitoring Vital Signs Temperature 98.4 F 10/27/18 22:40 Pulse Rate 95 H 10/27/18 22:40 Respiratory Rate 14 10/27/18 22:40 Blood Pressure 157/112 H 10/27/18 22:40 O2 Sat by Pulse Oximetry (%) 99 10/27/18 22:40 <Thelma Chadwick I - Last Filed: 10/28/18 23:35> *DC/Admit/Observation/Transfer - Attestations Scribe Attestion: 10/27/18 23:13 Documentation prepared by Zaire Whalen, acting as registered medical assistant for Thelma Chadwick MD <Zaire Whalen - Last Filed: 10/27/18 23:12> <Thelma Chadwick I - Last Filed: 10/28/18 23:35> Diagnosis at time of Disposition: Sciatica Qualifiers: Laterality: left Qualified Code(s): M54.32 - Sciatica, left side - Discharge Dispostion Disposition: HOME Condition at time of disposition: Good - Prescriptions Prescriptions: Methocarbamol [Robaxin -] 500 mg PO BID #14 tablet - Patient Instructions Additional Instructions: For the pain continue to take your Vicodin as prescribed. In addition to the Vicodin you can also take Motrin 2 tablets 3 times a day with food don't take on an empty stomach. I also sent a prescription for a muscle relaxant to your pharmacy for Robaxin taken before bed. As it will make you drowsy. Here in a lot of discomfort during the day you can also take it in the morning. Follow-up with your neurologist if not improved by next Thursday. Return to the emergency department immediately with ANY new, persistent or worsening symptoms. Continue any medications as previously prescribed by your physician. You should follow up with your primary doctor as soon as possible regarding today's emergency department visit. . Please make sure your doctor reviews the results of your emergency evaluation. Thank you for coming to the Emergency Department today for your care. It was a pleasure to see you today. Please note that your evaluation is INCOMPLETE until you follow-up with your doctor.
[2018-10-27] MEDS ORDERED: KETOROLAC TROMETHAMINE 60 MG/2 ML VIAL IM ONE (23:02)
[2018-10-27] MEDS ORDERED: METHOCARBAMOL 750 MG TABLET PO STA (23:03)
[2018-10-27] MEDS ORDERED: METHOCARBAMOL 500 MG TABLET ONE (23:05)
[2018-10-27] MEDS ORDERED: KETOROLAC TROMETHAMINE 60 MG/2 ML VIAL ONE (23:05)
[2018-10-27] MEDS ORDERED: METHOCARBAMOL 500 MG TABLET PO ONE (23:05)
== END 2018-10-27 23:18 | disposition home or self-care (01) ==
LOC: FER 22:38
DX: M54.32 Sciatica, left side (principal); F03.90 Unspecified dementia, unspecified severity, without behavioral disturbance, psychotic disturbance, mood disturbance, and anxiety; J44.9 Chronic obstructive pulmonary disease, unspecified; E78.00 Pure hypercholesterolemia, unspecified; F17.210 Nicotine dependence, cigarettes, uncomplicated; Z85.3 Personal history of malignant neoplasm of breast
CPT/HCPCS: 99282-25